=== PATIENT | male | born 1940 | race Caucasian/White ===

== ENCOUNTER → 2019-08-10 | Outpatient (CLI) | payer OTHER ==
[~2019-08-10] MED LIST: AUGMENTIN 875 M1 TAB PO; VICODIN ES 7501 TAB PO
== END | disposition home or self-care (01) ==
LOC: CT 10:42
DX: I25.10 Atherosclerotic heart disease of native coronary artery without angina pectoris (principal); R91.8 Other nonspecific abnormal finding of lung field

== ENCOUNTER 2019-11-02 22:04 | Emergency (ER) | payer OTHER ==
[~2019-11-02] VITALS: Ht 185.4 cm; Wt 127.9 kg
[2019-11-02] MEDS ORDERED: CEPHALEXIN500 M1 PO (23:57)
== END 2019-11-03 00:27 | disposition home or self-care (01) ==
LOC: ED 22:04
DX: L84 Corns and callosities (principal); E11.42 Type 2 diabetes mellitus with diabetic polyneuropathy; I25.10 Atherosclerotic heart disease of native coronary artery without angina pectoris; I11.0 Hypertensive heart disease with heart failure; I50.9 Heart failure, unspecified; I25.2 Old myocardial infarction; E66.9 Obesity, unspecified; G89.29 Other chronic pain; Z86.73 Personal history of transient ischemic attack (TIA), and cerebral infarction without residual deficits; Z91.041 Radiographic dye allergy status; Z90.49 Acquired absence of other specified parts of digestive tract; Z98.61 Coronary angioplasty status

== ENCOUNTER → 2020-09-13 | Outpatient (CLI) | payer OTHER ==
[~2020-09-13] MED LIST changes: +CEPHALEXIN500 M1 PO
== END | disposition home or self-care (01) ==
LOC: CT 09-12 13:00
PROVIDERS: ATTEND Nurse Practitioner
DX: I67.82 Cerebral ischemia (principal); I70.8 Atherosclerosis of other arteries; K11.9 Disease of salivary gland, unspecified

== ENCOUNTER → 2020-10-02 | Outpatient (CLI) | payer OTHER | END | disposition home or self-care (01) | LOC: CARD 08:30 | PROVIDERS: ATTEND Nurse Practitioner Adult Health | DX: I35.8 Other nonrheumatic aortic valve disorders (principal); I05.8 Other rheumatic mitral valve diseases; I50.21 Acute systolic (congestive) heart failure ==

== ENCOUNTER 2021-07-18 11:25 | Emergency (ER) | payer OTHER | END 2021-07-18 13:29 | disposition left against medical advice (07) | LOC: ED 11:25 | DX: R05.9 Cough, unspecified (principal); Z53.21 Procedure and treatment not carried out due to patient leaving prior to being seen by health care provider ==

== ENCOUNTER 2021-11-14 13:52 | Inpatient (IN) | payer OTHER ==
[~2021-11-14] VITALS: Ht 187.9 cm; Wt 132.9 kg
[2021-11-14] VITALS (7 sets, daily range): BP systolic 84–114; BP diastolic 30–78
[2021-11-14 14:28] LABS: HEMATOCRIT 36.2 % (42.0-52.0); MEAN CELL VOLUME 99.2 fl (80.0-94.0); MEAN CORPUSCULAR HGB 32.1 pg (27.0-31.0); MEAN CORPUSCULAR HGB CONC 32.3 g/dl (33.0-37.0); MEAN PLATELET VOLUME 12.6 fl (9.6-12.3); PLATELET COUNT AUTOMATED 148 10*3/uL (130-400); RED BLOOD COUNT 3.65 10*6/uL (4.50-5.90); RED CELL DISTRI WIDTH 14.3 % (0-14.5); WHITE BLOOD COUNT 17.3 10*3/uL (4.8-10.8)
[2021-11-14 14:37] LABS: MANUAL DIFF REFLEX YES
[2021-11-14 14:43] LABS: ALKALINE PHOSPHATASE 60 U/L (45-117); BUN 34 mg/dl (7-24); CHLORIDE 109 mmol/L (98-107); CREATININE 1.97 mg/dL (0.70-1.30); POTASSIUM 3.6 mmol/L (3.5-5.1); SGOT/AST 18 IU/L (3-35); SODIUM 140 mmol/L (136-145); TOTAL PROTEIN 5.9 gm/dL (6.4-8.2)
[2021-11-14 14:45] LABS: INTERNATIONAL NORM RATIO 1.2 (2.0-3.5)
[2021-11-14 14:46] LABS: SGPT/ALT < 6 U/L (12-78)
[2021-11-14 14:49] LABS: TOTAL CELLS COUNTED 100 #CELLS
[2021-11-14 14:50] LABS: PLATELET SUFFICIENCY NORMAL (NORMAL)
[2021-11-14 16:06] LABS: BILIRUBIN Negative (Negative); BLOOD Negative (Negative); CLARITY Cloudy (Clear); COLOR Yellow (Yellow); GLUCOSE Negative (Negative); KETONE Trace (Negative); LEUKO ESTERASE Negative (Negative); NITRITE Negative (Negative); UROBILINOGEN 0.2 E.U./dl (0.0-1.0)
[2021-11-14 16:24] LABS: BACTERIA 4+; EPITHELIAL CELLS 0-2
[2021-11-14] MEDS ORDERED: TYLENOL325 M1 PO (23:27)
[2021-11-14] MEDS ORDERED: ALDACTONE25 M1 PO (23:27)
[2021-11-14] MEDS ORDERED: ALLOPURINOL100 MG PO (23:27)
[2021-11-14] MEDS ORDERED: LIPITOR40 MG PO (23:28)
[2021-11-14] MEDS ORDERED: AMITRIPTYLINE50 MG PO (23:28)
[2021-11-14] MEDS ORDERED: ASPIRIN ADULT L81 M1 PO (23:28)
[2021-11-14] MEDS ORDERED: DULCOLAX10 M1 R (23:29)
[2021-11-14] MEDS ORDERED: KEFZOL IV (23:31)
[2021-11-14] MEDS ORDERED: COREG25 MG PO (23:31)
[2021-11-14] MEDS ORDERED: CYMBALTA30 MG PO (23:32)
[2021-11-14] MEDS ORDERED: B-121000 MCG PO (23:32)
[2021-11-14] MEDS ORDERED: LASIX20 MG PO (23:33)
[2021-11-14] MEDS ORDERED: FLEET ENEMA 13133 ML R (23:33)
[2021-11-14] MEDS ORDERED: LOVENOX30 MG/0.3 SC (23:34)
[2021-11-14] MEDS ORDERED: ACIDOPHILUS1 EAC4 PO (23:34)
[2021-11-14] MEDS ORDERED: COZAAR100 MG PO (23:34)
[2021-11-14] MEDS ORDERED: LYRICA100 M1 PO (23:35)
[2021-11-14] MEDS ORDERED: MILK OF MA400 MG/52 PO (23:37)
[2021-11-14] MEDS ORDERED: PROTONIX20 MG PO (23:37)
[2021-11-14] MEDS ORDERED: ZOFRAN4 MG PO (23:38)
[2021-11-14] MEDS ORDERED: TRAMADOL HCL50 MG PO (23:38)
[2021-11-15] VITALS (79 sets, daily range): BP systolic 66–141; BP diastolic 0–89
[2021-11-15 05:04] LABS: HEMATOCRIT 33.1 % (42.0-52.0); MEAN CELL VOLUME 98.8 fl (80.0-94.0); MEAN CORPUSCULAR HGB 31.9 pg (27.0-31.0); MEAN CORPUSCULAR HGB CONC 32.3 g/dl (33.0-37.0); MEAN PLATELET VOLUME 12.9 fl (9.6-12.3); PLATELET COUNT AUTOMATED 151 10*3/uL (130-400); RED BLOOD COUNT 3.35 10*6/uL (4.50-5.90); RED CELL DISTRI WIDTH 14.4 % (0-14.5); WHITE BLOOD COUNT 18.5 10*3/uL (4.8-10.8)
[2021-11-15 05:10] LABS: ALKALINE PHOSPHATASE 63 U/L (45-117); BUN 39 mg/dl (7-24); CHLORIDE 111 mmol/L (98-107); CREATININE 2.44 mg/dL (0.70-1.30); POTASSIUM 3.8 mmol/L (3.5-5.1); SGOT/AST 16 IU/L (3-35); SODIUM 141 mmol/L (136-145); TOTAL PROTEIN 5.2 gm/dL (6.4-8.2)
[2021-11-15 05:12] LABS: SGPT/ALT < 6 U/L (12-78)
[2021-11-15 06:13] LABS: MANUAL DIFF REFLEX YES
[2021-11-15 06:40] LABS: PLATELET SUFFICIENCY NORMAL (NORMAL); TOTAL CELLS COUNTED 100 #CELLS
[2021-11-15 19:25] LABS: ARTERIAL BLOOD GAS PO2 83.5 (80-90)
[2021-11-15 19:27] LABS: ABG BASE EXCESS -7.6 mmol/L (-2.0-2.0)
[2021-11-15 19:28] LABS: ARTERIAL BLOOD GAS PH 7.156 (7.35-7.45)
[2021-11-15 22:28] LABS: ARTERIAL BLOOD GAS PH 7.253 (7.35-7.45); ARTERIAL BLOOD GAS PO2 202.3 (80-90)
[2021-11-15 22:31] LABS: ABG BASE EXCESS -7.9 mmol/L (-2.0-2.0)
[2021-11-16] VITALS (96 sets, daily range): BP systolic 78–148; BP diastolic 42–118
[2021-11-16 05:44] LABS: CHLORIDE 104 mmol/L (98-107); CREATININE 2.71 mg/dL (0.70-1.30); POTASSIUM 4.2 mmol/L (3.5-5.1); SGOT/AST 18 IU/L (3-35); SODIUM 133 mmol/L (136-145); TOTAL PROTEIN 5.5 gm/dL (6.4-8.2)
[2021-11-16 05:45] LABS: ALKALINE PHOSPHATASE 83 U/L (45-117)
[2021-11-16 05:48] LABS: BUN 52 mg/dl (7-24); SGPT/ALT < 6 U/L (12-78)
[2021-11-16 06:04] LABS: HEMATOCRIT 40.8 % (42.0-52.0); MEAN CELL VOLUME 96.2 fl (80.0-94.0); MEAN CORPUSCULAR HGB 32.1 pg (27.0-31.0); MEAN CORPUSCULAR HGB CONC 33.3 g/dl (33.0-37.0); MEAN PLATELET VOLUME 12.8 fl (9.6-12.3); NUCLEATED RED BLOOD CELL 0.1 10*3/uL (0.0-0.0); NUCLEATED RED BLOOD CELL 0.2 % (0.0-0.0); RED BLOOD COUNT 4.24 10*6/uL (4.50-5.90); RED CELL DISTRI WIDTH 14.1 % (0-14.5); WHITE BLOOD COUNT 33.3 10*3/uL (4.8-10.8)
[2021-11-16 06:29] LABS: MANUAL DIFF REFLEX YES
[2021-11-16 07:16] LABS: PLATELET COUNT AUTOMATED 229 10*3/uL (130-400)
[2021-11-16 07:33] LABS: TOTAL CELLS COUNTED 100 #CELLS
[2021-11-16 07:34] LABS: PLATELET SUFFICIENCY NORMAL (NORMAL)
[2021-11-16 07:57] LABS: ABG BASE EXCESS -7.6 mmol/L (-2.0-2.0); ARTERIAL BLOOD GAS PH 7.32 (7.35-7.45); ARTERIAL BLOOD GAS PO2 130.5 (80-90)
[2021-11-17] VITALS (47 sets, daily range): BP systolic 64–129; BP diastolic 41–78
[2021-11-17 04:44] LABS: HEMATOCRIT 50.1 % (42.0-52.0); MEAN CORPUSCULAR HGB 31.8 pg (27.0-31.0); MEAN CORPUSCULAR HGB CONC 33.1 g/dl (33.0-37.0); MEAN PLATELET VOLUME 12.9 fl (9.6-12.3); NUCLEATED RED BLOOD CELL 0.1 10*3/uL (0.0-0.0); NUCLEATED RED BLOOD CELL 0.3 % (0.0-0.0); PLATELET COUNT AUTOMATED 225 10*3/uL (130-400); RED BLOOD COUNT 5.22 10*6/uL (4.50-5.90); RED CELL DISTRI WIDTH 14.3 % (0-14.5)
[2021-11-17 04:47] LABS: MANUAL DIFF REFLEX YES; WHITE BLOOD COUNT 54.4 10*3/uL (4.8-10.8)
[2021-11-17 05:06] LABS: CREATININE 3.99 mg/dL (0.70-1.30); POTASSIUM 4.6 mmol/L (3.5-5.1); TOTAL PROTEIN 4.9 gm/dL (6.4-8.2)
[2021-11-17 05:08] LABS: ATYPICAL LYMPHS 1 % (0-0); PLATELET SUFFICIENCY NORMAL (NORMAL); TOTAL CELLS COUNTED 100 #CELLS; TOXIC GRANULATION MARKED
[2021-11-17 08:02] LABS: ARTERIAL BLOOD GAS PO2 132.8 (80-90)
[2021-11-17 08:03] LABS: ABG BASE EXCESS -18.1 mmol/L (-2.0-2.0)
[2021-11-17 08:04] LABS: ARTERIAL BLOOD GAS PH 7.118 (7.35-7.45)
== END 2021-11-17 11:58 | disposition hospice, inpatient (51) | DRG 871 ==
LOC: ED 13:52 → ICCU 18:18 → EDHOLD 18:18 → ICCU 19:19
PROVIDERS: Hospitalist; Internal Medicine; Internal Medicine Pulmonary Disease; Physician Assistant; ADMIT Emergency Medicine; ATTEND Emergency Medicine
PROC: 5A1945Z Respiratory Ventilation, 24-96 Consecutive Hours (ICD-10-PCS; principal; 2021-11-15)
PROC: 0BH17EZ Insertion of Endotracheal Airway into Trachea, Via Natural or Artificial Opening (ICD-10-PCS; 2021-11-15)
PROC: 02HV33Z Insertion of Infusion Device into Superior Vena Cava, Percutaneous Approach (ICD-10-PCS; 2021-11-15)
PROC: B548ZZA Ultrasonography of Superior Vena Cava, Guidance (ICD-10-PCS; 2021-11-15)
PROC: 03HY32Z Insertion of Monitoring Device into Upper Artery, Percutaneous Approach (ICD-10-PCS; 2021-11-16)
PROC: 4A133B1 Monitoring of Arterial Pressure, Peripheral, Percutaneous Approach (ICD-10-PCS; 2021-11-16)
PROC: 4A133J1 Monitoring of Arterial Pulse, Peripheral, Percutaneous Approach (ICD-10-PCS; 2021-11-16)
DX: A41.9 Sepsis, unspecified organism (principal); G93.41 Metabolic encephalopathy; N17.0 Acute kidney failure with tubular necrosis; E43 Unspecified severe protein-calorie malnutrition; J80 Acute respiratory distress syndrome; R65.21 Severe sepsis with septic shock; A04.72 Enterocolitis due to Clostridium difficile, not specified as recurrent; I50.32 Chronic diastolic (congestive) heart failure; N30.00 Acute cystitis without hematuria; L97.419 Non-pressure chronic ulcer of right heel and midfoot with unspecified severity; I13.0 Hypertensive heart and chronic kidney disease with heart failure and stage 1 through stage 4 chronic kidney disease, or unspecified chronic kidney disease; I48.20 Chronic atrial fibrillation, unspecified; S91.301A Unspecified open wound, right foot, initial encounter; E11.621 Type 2 diabetes mellitus with foot ulcer; E11.65 Type 2 diabetes mellitus with hyperglycemia; I25.10 Atherosclerotic heart disease of native coronary artery without angina pectoris; Z51.5 Encounter for palliative care; K21.9 Gastro-esophageal reflux disease without esophagitis; M10.9 Gout, unspecified; F32.9 Major depressive disorder, single episode, unspecified; E87.8 Other disorders of electrolyte and fluid balance, not elsewhere classified; D53.9 Nutritional anemia, unspecified; E78.2 Mixed hyperlipidemia; E11.42 Type 2 diabetes mellitus with diabetic polyneuropathy; Z66 Do not resuscitate; Z95.5 Presence of coronary angioplasty implant and graft; W18.39XA Other fall on same level, initial encounter; Z90.49 Acquired absence of other specified parts of digestive tract; Z79.4 Long term (current) use of insulin; Z82.49 Family history of ischemic heart disease and other diseases of the circulatory system; Z68.37 Body mass index [BMI] 37.0-37.9, adult; Z79.82 Long term (current) use of aspirin; Z79.899 Other long term (current) drug therapy; Z88.8 Allergy status to other drugs, medicaments and biological substances; Y93.89 Activity, other specified; Y92.89 Other specified places as the place of occurrence of the external cause; Y99.8 Other external cause status

== ENCOUNTER 2021-11-17 12:04 | Inpatient (IN) | payer OTHER ==
[2021-11-17 11:57] VITALS: BP 43/30
[~2021-11-17 12:04] MED LIST changes: +ACIDOPHILUS1 EAC4 PO; +ALDACTONE25 M1 PO; +ALLOPURINOL100 MG PO; +AMITRIPTYLINE50 MG PO; +ASPIRIN ADULT L81 M1 PO; +B-121000 MCG PO; +COREG25 MG PO; +COZAAR100 MG PO; +CYMBALTA30 MG PO; +DULCOLAX10 M1 R; +FLEET ENEMA 13133 ML R; +KEFZOL IV; +LASIX20 MG PO; +LIPITOR40 MG PO; +LOVENOX30 MG/0.3 SC; +LYRICA100 M1 PO; +MILK OF MA400 MG/52 PO; +PROTONIX20 MG PO; +TRAMADOL HCL50 MG PO; +TYLENOL325 M1 PO; +ZOFRAN4 MG PO
== END 2021-11-17 12:07 | DRG 871 ==
LOC: ICCU 12:04
PROVIDERS: ADMIT Emergency Medicine; ATTEND Emergency Medicine
DX: A41.9 Sepsis, unspecified organism (principal); N17.0 Acute kidney failure with tubular necrosis; J80 Acute respiratory distress syndrome; R65.21 Severe sepsis with septic shock; A04.72 Enterocolitis due to Clostridium difficile, not specified as recurrent; N39.0 Urinary tract infection, site not specified; Z51.5 Encounter for palliative care; Z66 Do not resuscitate; S91.309A Unspecified open wound, unspecified foot, initial encounter; S91.301A Unspecified open wound, right foot, initial encounter; E78.2 Mixed hyperlipidemia; E11.9 Type 2 diabetes mellitus without complications; I25.10 Atherosclerotic heart disease of native coronary artery without angina pectoris; K21.9 Gastro-esophageal reflux disease without esophagitis; I50.9 Heart failure, unspecified; I11.0 Hypertensive heart disease with heart failure; Z91.041 Radiographic dye allergy status; Z95.5 Presence of coronary angioplasty implant and graft